=== PATIENT | female | born 1955 | race Caucasian/White ===

== ENCOUNTER 2017-08-14 15:44 | Emergency (ER) | payer OTHER ==
[~2017-08-14] VITALS: Ht 156.2 cm; Wt 49.0 kg
[2017-08-14] MEDS ORDERED: LEVO88TA2 PO (17:27)
[2017-08-14 17:40] VITALS: BP 132/73; PULSE 86; RESP 18; TEMP 98.7; O2SAT 97
--- NOTE | 2017-08-14 19:20 | PD ---
HPI Chief Complaint: Psychiatric Symptoms Time Seen by Provider: 19:06 Travel History International Travel<30 days: No Contact w/Intl Traveler<30days: No Traveled to known affect area: No History of Present Illness HPI 61-year-old female that presents to the ED for evaluation of psychiatric illness. Patient was Contreras acted by police after apparently brother called the police stating that the patient was suicidal. Patient states that she has a chronic history of depression and she's been feeling hopeless secondary to family stressors. She states that she does have a history of depression and has been out of her medications for about 3 months. Per patient and his symptoms Is What She Quit Taking Them. She Denies Any Substance Abuse. She Denies Any Fevers Chills or Sweats. No Medical Issues at This Time Other Than Prior Disorder. Denies Cutting Herself. Denies Any Actual Plan but States That She Does Feel Hopeless. Has allergies to Bactrim. Denies any other medical issues at this time. Per patient's symptoms have been ongoing for a couple of weeks and symptoms have gotten worse since been off her medications. She denies any homicidal ideation. [facility] Past Medical History Anxiety: Yes Depression: Yes ?: Unknown Social History Alcohol Use: No Tobacco Use: No Substance Use: No Allergies-Medications (Allergen,Severity, Reaction): Coded Allergies: sulfamethoxazole (Verified Allergy, Unknown, 08/14/17) Per pt. trimethoprim (Verified Allergy, Unknown, 08/14/17) Per pt. Reported Meds & Prescriptions Reported Meds & Active Scripts Active Reported Levothyroxine (Levothyroxine Sodium) 88 Mcg Tab 88 Mcg PO DAILY Review of Systems Except as stated in HPI: all other systems reviewed are Neg Physical Exam Narrative GENERAL: SKIN: Warm and dry. HEAD: Atraumatic. Normocephalic. EYES: Pupils equal and round. No scleral icterus. No injection or drainage. ENT: No nasal bleeding or discharge. Mucous membranes pink and moist. NECK: Trachea midline. No JVD. CARDIOVASCULAR: Regular rate and rhythm. RESPIRATORY: No accessory muscle use. Clear to auscultation. Breath sounds equal bilaterally. GASTROINTESTINAL: Abdomen soft, non-tender, nondistended. Hepatic and splenic margins not palpable. MUSCULOSKELETAL: Extremities without clubbing, cyanosis, or edema. No obvious deformities. Full range of motion of the upper and lower extremities bilaterally. 2+ pulses bilaterally. NEUROLOGICAL: Awake and alert. No obvious cranial nerve deficits. Motor grossly within normal limits. Five out of 5 muscle strength in the arms and legs. Normal speech. PSYCHIATRIC: Depressive mood and affect; insight and judgment normal. Data Data Last Documented VS Vital Signs Date Time Temp Pulse Resp B/P (MAP) Pulse Ox O2 Delivery O2 Flow Rate FiO2 08/14/17 17:40 98.7 86 18 132/73 (92) 97 Room Air Orders Orders Complete Blood Count With Diff (08/14/17 18:06) Comprehensive Metabolic Panel (08/14/17 18:06) Urinalysis - C+S If Indicated (08/14/17 18:06) Psych Screen (08/14/17 18:06) Drug Screen, Random Urine (08/14/17 18:06) Alcohol (Ethanol) (08/14/17 18:06) Salicylates (Aspirin) (08/14/17 18:06) Tylenol (Acetaminophen) (08/14/17 18:06) Thyroid Stimulating Hormone (08/14/17 19:14) Labs Laboratory Tests Test 08/14/17 17:40 08/14/17 18:40 [facility] Medical Decision Making Medical Screen Exam Complete: Yes Emergency Medical Condition: Yes Medical Record Reviewed: Yes Differential Diagnosis Depression versus suicidal ideation versus anxiety versus adjustment disorder versus mood disorder versus bipolar disorder versus schizophrenia versus paranoid disorder versus psychosis versus substance abuse versus alcohol abuse versus alcohol induced psychosis versus homicidality addition versus cutting versus personality disorder Narrative Course 61-year-old female that presents to the ED for evaluation of psych. Patient was properly examined and was found to have signs and symptoms consistent psychiatric illness. No sign of acute medical distress. Labs were ordered. Patient will be medically clear. Okay to be seen by psych. Mental health screening was discussed with the patient. Diagnosis Primary Impression: Depression Qualified Codes: F33.1 - Major depressive disorder, recurrent, moderate Raj Garcia Aug 14, 2017 19:20
[2017-08-14 19:40] LABS: BACTERIA, URINE RARE /hpf; BLOOD, URINE NEG (NEG); COMMENT (UR) CULT NOT INDICATED; CULTURE IF INDICATED CULT NOT INDICATED; GLUCOSE,URINE NEG (NEG); HYALINE CAST, URINE 25 /lpf (RARE); KETONE, URINE NEG (NEG); MUCUS URINE MANY /lpf (OCC); NITRITE,URINE NEG (NEG); SQUAMOUS EPITHELIAL CELL URINE 3 /hpf (0-5); URINE COLOR YELLOW (YELLW/STRAW)
[2017-08-14 19:43] LABS: AUTOMATED NEUTROPHIL # 6.5 TH/MM3 (1.8-7.7); BASOPHIL % 0.5 % (0.0-2.0); EOSINOPHIL # 0.1 TH/MM3 (0-0.4); EOSINOPHIL % 0.8 % (0.0-4.0); HEMATOCRIT 47.2 % (35.0-46.0); HEMO FLAGS DIFF FINAL; LYMPH % 24.9 % (9.0-44.0); LYMPHOCYTE # 2.4 TH/MM3 (1.0-4.8); MEAN CELL VOLUME 97.1 FL (80.0-100.0); MEAN CORPUSCULAR HEMOGLOBIN 33.6 PG (27.0-34.0); MEAN CORPUSCULAR HGB CONC 34.6 % (32.0-36.0); MONO % 6.2 % (0.0-8.0); NEUT % 67.6 % (16.0-70.0); PLATELET COUNT 311 TH/MM3 (150-450); RED BLOOD COUNT 4.86 MIL/MM3 (4.00-5.30); RED CELL DISTRIBUTION WIDTH 13.3 % (11.6-17.2); WHITE BLOOD COUNT 9.6 TH/MM3 (4.0-11.0)
[2017-08-14 19:50] LABS: ANION GAP 7 MEQ/L (5-15)
[2017-08-14 19:54] LABS: ALKALINE PHOSPHATASE 80 U/L (45-117); ALT (GPT) 13 U/L (10-53); AST (GOT) 13 U/L (15-37); BICARBONATE 27.3 MEQ/L (21.0-32.0); BLOOD UREA NITROGEN 14 MG/DL (7-18); CHLORIDE 107 MEQ/L (98-107); GLOMERULAR FILTRATION RATE 71 ML/MIN (>89); POTASSIUM 4.7 MEQ/L (3.5-5.1); SODIUM (NA) 141 MEQ/L (136-145); TOTAL BILIRUBIN ADULT 0.3 MG/DL (0.2-1.0)
[2017-08-14 19:55] LABS: ACETAMINOPHEN LESS THAN 2.0 MCG/ML (10.0-30.0); ALCOHOL LESS THAN 3 MG/DL (0-5)
[2017-08-14 21:50] VITALS: BP 147/85; PULSE 80; RESP 16; O2SAT 99
[2017-08-15 02:00] VITALS: BP 135/84; PULSE 75; RESP 17; O2SAT 99
[2017-08-15 06:46] VITALS: BP 160/89; PULSE 79; RESP 18
[2017-08-15 11:11] VITALS: BP 141/82; PULSE 83; RESP 16; O2SAT 98
[2017-08-15 12:10] VITALS: BP 165/86; PULSE 79; RESP 17; TEMP 98.6; O2SAT 99
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
[2017-08-15] MEDS ORDERED: REME15TA PO (17:07)
--- NOTE | 2017-08-15 17:31 | PD ---
Physical Exam Narrative I Was asked by the psychiatric staff to discharge patient after she was medically cleared by the emergency room then evaluated by the industrial organizational psychologist and Contreras act was lifted. Data Data Last Documented VS Vital Signs Date Time Temp Pulse Resp B/P (MAP) Pulse Ox O2 Delivery O2 Flow Rate FiO2 08/15/17 12:10 98.6 79 17 165/86 (112) 99 Room Air Orders Orders Complete Blood Count With Diff (08/14/17 18:06) Comprehensive Metabolic Panel (08/14/17 18:06) Urinalysis - C+S If Indicated (08/14/17 18:06) Psych Screen (08/14/17 18:06) Drug Screen, Random Urine (08/14/17 18:06) Alcohol (Ethanol) (08/14/17 18:06) Salicylates (Aspirin) (08/14/17 18:06) Tylenol (Acetaminophen) (08/14/17 18:06) Thyroid Stimulating Hormone (08/14/17 19:14) Diet Regular Basic (08/15/17 Breakfast) Diet Regular Basic (08/15/17 Lunch) Labs Laboratory Tests Test 08/14/17 17:40 08/14/17 18:40 Salicylates Level 6.6 MG/DL White Blood Count 9.6 TH/MM3 Red Blood Count 4.86 MIL/MM3 Hemoglobin 16.3 GM/DL Hematocrit 47.2 % Mean Corpuscular Volume 97.1 FL Mean Corpuscular Hemoglobin 33.6 PG Mean Corpuscular Hemoglobin Concent 34.6 % Red Cell Distribution Width 13.3 % Platelet Count 311 TH/MM3 Mean Platelet Volume 8.1 FL Neutrophils (%) (Auto) 67.6 % Lymphocytes (%) (Auto) 24.9 % Monocytes (%) (Auto) 6.2 % Eosinophils (%) (Auto) 0.8 % Basophils (%) (Auto) 0.5 % Neutrophils # (Auto) 6.5 TH/MM3 Lymphocytes # (Auto) 2.4 TH/MM3 Monocytes # (Auto) 0.6 TH/MM3 Eosinophils # (Auto) 0.1 TH/MM3 Basophils # (Auto) 0.0 TH/MM3 CBC Comment DIFF FINAL Differential Comment Urine Color YELLOW Urine Turbidity HAZY Urine pH 6.0 Urine Specific [place] 1.015 Urine Protein TRACE mg/dL Urine Glucose (UA) NEG mg/dL Urine Ketones NEG mg/dL Urine Occult Blood NEG Urine Nitrite NEG Urine Bilirubin NEG Urine Urobilinogen LESS THAN 2.0 MG/DL Urine Leukocyte Esterase NEG Urine RBC 1 /hpf Urine WBC 3 /hpf Urine Squamous Epithelial Cells 3 /hpf Urine Bacteria RARE /hpf Urine Hyaline Casts 25 /lpf Urine Mucus MANY /lpf Microscopic Urinalysis Comment CULT NOT INDICATED Blood Urea Nitrogen 14 MG/DL Creatinine 0.82 MG/DL Random Glucose 149 MG/DL Total Protein 7.8 GM/DL Albumin 4.2 GM/DL Calcium Level 9.4 MG/DL Alkaline Phosphatase 80 U/L Aspartate Amino Transf (AST/SGOT) 13 U/L Alanine Aminotransferase (ALT/SGPT) 13 U/L Total Bilirubin 0.3 MG/DL Sodium Level 141 MEQ/L Potassium Level 4.7 MEQ/L Chloride Level 107 MEQ/L Carbon Dioxide Level 27.3 MEQ/L Anion Gap 7 MEQ/L Estimat Glomerular Filtration Rate 71 ML/MIN Thyroid Stimulating Hormone 3rd Gen 2.080 uIU/ML Urine Opiates Screen NEG Acetaminophen Level LESS THAN 2.0 MCG/ML Urine Barbiturates Screen NEG Urine Amphetamines Screen NEG Urine Benzodiazepines Screen NEG Urine Cocaine Screen NEG Urine Cannabinoids Screen NEG Ethyl Alcohol Level LESS THAN 3 MG/DL MDM Supervised Visit with GUNNAR: Yes Narrative Course EMILY Mena has evaluated the patient, lifted the Rector act and the patient will be discharged home. Patient contracts safety. Denies suicidal or homicidal ideations. Patient will be provided community resource packet to [facility] for follow-up. Has friends and family for support. Patient is medically cleared for discharge. Diagnosis Primary Impression: Depression Qualified Codes: F33.1 - Major depressive disorder, recurrent, moderate Referrals: [facility] Psychiatrist [facility] Additional Instruction: Contract safety to your self and others Follow-up with psychiatry Follow-up with primary care provider Follow-up with Yifan Snyder Return to the emergency department immediately with worsening of symptoms Scripts Mirtazapine (Remeron) 15 Mg Tab 15 MG PO HS for Depression Control for 30 Days, #30 TAB 0 Refills Prov: Trina Morel 08/15/17 Disposition: 01 DISCHARGE HOME Condition: Stable Beba Fontenot Aug 15, 2017 17:31
== END 2017-08-15 18:15 | disposition home or self-care (01) ==
LOC: NEPJ 15:44
DX: F32.9 Major depressive disorder, single episode, unspecified (principal); F41.9 Anxiety disorder, unspecified; Z79.899 Other long term (current) drug therapy; Z88.2 Allergy status to sulfonamides; Z88.8 Allergy status to other drugs, medicaments and biological substances
CPT/HCPCS: 80053; 80307; 81001; 84443; 85025; 99283